=== PATIENT | female | born 1975 | race Asian ===

== ENCOUNTER 2017-01-01 20:29 | Emergency (ER) | payer BC ==
[2017-01-01] MEDS ORDERED: NORMAL SALINE 1,000 ML IV ONE (21:00)
[2017-01-01] MEDS ORDERED: KETOROLAC TROMETHAMINE 30 MG/ML VIAL IV ONE (21:00)
--- NOTE | 2017-01-01 21:01 | ERNOTE ---
<Amber Schilling - Last Filed: 01/01/17 22:08> Abdominal HPI - Narrative Date of Service: 01/01/17 - General Chief Complaint: Abdominal Pain Time Seen by Provider: 01/01/17 20:52 Source: patient Exam Limitations: no limitations - Immun/Allergies/Home Medications Immunizatons: IMMUNIZATION HX Immunizations Up to Date Yes History of Influenza Vaccine Yes Hx Pneumococcal Vaccination Yes Allergies/Adverse Reactions: Allergies latex Allergy (Mild, Verified 02/07/17 14:00) Other numbness/tingling Home Medications: HOME MEDICATIONS Ibuprofen [Motrin] 800 mg PO Q8H PRN #30 tablet 02/08/17 [Last Taken Unknown] - History of Present Illness Narrative: Pt. comes in with c/o RUQ and RLQ abd pain for a day pt. states that she developed the pain this afternoon and states that it started in her lower abdomen and has moved to her R side and to BUQ. Pt. states that she develops nausea when the pain is very bad but not when the pain is only moderate. Pt. denies any vomiting, diarrhea or constipation. Pt. states that her LBM was this morning and it was nor mal for her. Pt. states that she is on her menses righ now on day four and has severe cramping from this due to uterine fibroids and was told by Dr Bai that she most likely needs a hysterectomy but has not discussed when this should occur yet. Pt. denies saturating any more pads than 1 every three to four hours. Review of Systems - Review of Systems Constitutional: Present: no symptoms reported. Absent: recent illness, fever, chills, weakness, fatigue, malaise EYE: Present: no symptoms reported ENT: Present: no symptoms reported Respiratory: Present: no symptoms reported. Absent: shortness of breath, cough , wheezing Cardiology: Present: no symptoms reported. Absent: chest pain, palpitations, edema Gastrointestinal/Abdominal: Present: nausea - occasionally, abdominal pain. Absent: vomiting, diarrhea Genitourinary: Present: no symptoms reported Musculoskeletal: Present: no symptoms reported. Absent: back pain, joint pain Skin: Present: no symptoms reported. Absent: rash, change in color Neurological: Present: no symptoms reported. Absent: headache, dizziness/light- headedness, numbness, tingling All Other Systems: All systems neg except as marked - Patient's Past Medical History Patient History - Medical: Anemia Patient History - Cardiac/Respiratory: No pertinent hx Patient History - Cancer: No Hx of Cancer Patient History - Surgical Procedures: No surgical history Patient History - Other: None LMP (Calendar): 12/30/16 - Social History Living Situations: spouse Psych History: No pertinent hx Smoking Status: Never smoker Have you smoked in the past 12 months: No Do you dip or chew tobacco: No Patient requests Smoking Cessation Consult: No Initiate information on Smoking Cessation: No Drug Use: none - Immunizations Immunizations Up to Date: Yes Hx Pneumococcal Vaccination: Yes History of Influenza Vaccine: Yes Physical Exam - Physical Exam General Appearance: Present: wd/wn, alert, no apparent distress Eye Exam: Normal inspection: bilateral, PERRL: bilateral, EOMI: bilateral Ears, Nose, Throat: Present: normal ENT inspection, normal pharynx Neck: Present: normal inspection, nontender. Absent: lymphadenopathy (R), lymphadenopathy (L) Respiratory: Present: no respiratory distress, normal breath sounds, no accessory muscle use, chest nontender, lungs clear Cardiovascular/Chest: Present: regular rate, rhythm, no murmur, normal peripheral pulses Gastrointestinal/Abdominal: Present: normal bowel sounds, soft, no organomegaly , tenderness - RLQ RUQ, distended, guarding. Absent: rebound, McBurney sign, Obturator sign, Cantor sign, Psoas sign Back Exam: Present: normal inspection, normal range of motion, no CVA tenderness , no vertebral tenderness Extremity Exam: Present: normal inspection, non-tender, normal range of motion, no edema Neurological Exam: Present: alert, oriented, normal mood/affect, no motor/ sensory deficits Skin Exam: Present: normal color, warm/dry ED Progress - Vital Signs Patient's Vital Signs:: I have reviewed the patient's vital signs. Vital Signs: Vital Signs 01/01/17 20:29 Temperature 37.1 C Pulse Rate 91 Respiratory 18 Rate Blood Pressure 124/49 O2 Sat by Pulse 99 Oximetry - Progress/Reassessment Chief Complaint: Abdominal Pain Progress:: Unchanged - Transfer of Care Physician Sign Out: Amber Schilling Receiving Physician: Ashish Cerrato Pending Results: Labs, Physician/consult arrival, X-ray results Expected Disposition: Admit Departure - Departure Clinical Impression: Abdominal pain Qualifiers: Abdominal location: right lower quadrant Qualified Code(s): R10.31 - Right lower quadrant pain Anemia Qualifiers: Anemia type: iron deficiency Iron deficiency anemia type: chronic blood loss Qualified Code(s): D50.0 - Iron deficiency anemia secondary to blood loss ( chronic) Uterine fibroid Qualifiers: Uterine leiomyoma location: unspecified location Qualified Code(s): D25.9 - Leiomyoma of uterus, unspecified Disposition: Home self-care Condition: Fair Instructions: Uterine Fibroids, [id number] Print Language: Mozambican Additional Instructions: Call your physician in the morning. Referrals: Lyndsey Bai MD [Staff Physician] - <Ashish Cerrato - Last Filed: 03/15/17 05:56> Abdominal HPI - Immun/Allergies/Home Medications Immunizatons: IMMUNIZATION HX Immunizations Up to Date Yes History of Influenza Vaccine Yes Hx Pneumococcal Vaccination Yes - History of Present Illness Timing: constant Quality: severe Modifying Factors - (Improves): Present: other - nothing Modifying Factors - (Worsens): Present: other - nothing ED Progress - Results and Orders Patient's Lab Results:: I have reviewed the patient's lab results. - Vital Signs Patient's Vital Signs:: I have reviewed the patient's vital signs. Vital Signs: Vital Signs 01/01/17 01/01/17 01/01/17 20:29 21:18 23:21 Temperature 37.1 C Pulse Rate 91 88 90 Respiratory 18 16 Rate Blood Pressure 124/49 105/63 O2 Sat by Pulse 99 99 Oximetry - CT/Ultrasound CT/Ultrasound Narrative: US demonstarte a 1.7 x 0.9 x 1.5 cm hypoechoic lesion within the right ovary. 2.1 x 2.3 x.1.8 cm solid lesion with Doppler Flow within the right ovary. Doppler flow is seen within both ovaries. - Progress/Reassessment Progress:: Improved Progress Note-Subjective: 01/02/17 00:40 The pain is minimal at this time. Given potassium Chloride 40 meq po. 03/14/17 18:46
[2017-01-01 21:15] LABS: Hematocrit 28.4 % (37.0-47.0); Hemoglobin 8.3 gm/dL (12.5-16.0); Mean Cell Volume 71.9 fl (78-100); Mean Corpuscular Hgb Conc 29.2 g/dl (32-36); Mean Platelet Volume 9.2 fl (6.0-9.5); Neutrophil # 11.7 K/mm3 (1.3-6.0); Neutrophil % 89.7 % (42-75.0); Platelet Count 293 K/mm3 (150-450); Red Blood Count 3.95 M/mm3 (4.2-5.4); Red Cell Distribution Width 14.8 % (11.5-14.0)
[2017-01-01 21:36] LABS: Albumin * 3.4 gm/dl (3.4-5.0); Anion Gap 14.5 mmol/L (6.8-13.8); Bilirubin, Total 0.6 mg/dL (0.0-1.1); Ca. Corrected For Albumin 8.3 mg/dL (8.4-10.2); Calcium * 8.1 mg/dL (7.9-10.9); Carbon Dioxide 24.7 mmol/L (24-32.6); Potassium 3.2 mmol/L (3.4-4.6); Total Protein 7.2 gm/dL (6.2-8.2)
[2017-01-01] MEDS ORDERED: KETOROLAC TROMETHAMINE 30 MG/ML VIAL ONE (21:40)
[2017-01-01 22:00] LABS: Urine Bilirubin Negative (NEGATIVE); Urine Blood 250 /ul (NEGATIVE); Urine Ketone 15 mg/dL (NEGATIVE); Urine Nitrite Negative (NEGATIVE); Urine Protein 15 mg/dL (NEGATIVE); Urine Urobilinogen 4 EU/dl (NORMAL)
[2017-01-01 22:11] LABS: Urine Appearance Clear; Urine Bacteria 1+; Urine Color Yellow; Urine Mucus Moderate - 2+; Urine RBC 25-50 /hpf (0-5); Urine WBC None Seen /hpf (0-5)
[2017-01-01 22:19] LABS: Hemoglobin A1C 5.6 % (4.00-6.0)
[2017-01-02] MEDS ORDERED: HYDROcodone/ACETAMINOPHEN 1 EACH TABLET PO ONE (00:41)
[2017-01-02] MEDS ORDERED: POTASSIUM CHLORIDE 20 MEQ TABLET.SA PO ONE (00:44)
[2017-01-02] MEDS ORDERED: HYDROcodone/ACETAMINOPHEN 1 EACH TABLET ONE (00:58)
[2017-01-02] MEDS ORDERED: POTASSIUM CHLORIDE 20 MEQ TABLET.SA ONE (00:59)
[2017-01-02 04:04] VITALS: BP 112/52
== END 2017-01-02 00:50 | disposition home or self-care (01) ==
LOC: ER 20:29
DX: D25.9 Leiomyoma of uterus, unspecified (principal); D50.0 Iron deficiency anemia secondary to blood loss (chronic); R10.31 Right lower quadrant pain

== ENCOUNTER 2017-02-07 06:44 | Inpatient (IN) | payer BC ==
[~2017-02-07 06:44] MED LIST: ceFAZolin SODIUM 2 GM in DEXTROSE 5 % IN WATER 50 ML IV PRN
--- OUTSIDE RECORDS SUMMARY | 2017-02-07 06:47 | XMS REPORT | Continuity of Care Document ---
:1975 Author Organization [facility] ([facility]) Address [address] [place] [address] Phone [phone] Care Team Providers Name Role Phone Provider, No-Primary Care Primary Care Provider Unavailable Source Comments This disclosure is being made pursuant to the Care Everywhere program, applicable federal and state laws, and may not contain all informaitonavailable regarding this patient.[facility] ([facility]) Active Allergies and Adverse Reactions No Known Allergies Current Medications Prescription Sig. Disp. Refills Start Date End Date Status multivitamin with Take 1 tablet by Active minerals tablet mouth daily. Active Problems Not on file Most Recent Encounters Date Type Specialty Providers Description 01/28/2017 Office Visit Ophthalmology - Chief Comp: Patient Specialty Reported Reason For Visit 01/28/2017 Office Visit Ophthalmology - Stanley Becerra, Dx: Corneal disorder Specialty MD due to contact lens, bilateral (Primary Dx) Social History Tobacco Use Types Packs/Day Years Used Date Never Smoker Smokeless Tobacco: Never Used Plan of Care Date Type Specialty Providers Description 04/01/2017 Appointment Ophthalmology - Stanley Becerra MD Chief Comp: Patient Specialty [address] [place] [address] Visit [phone] (Fax) Health Maintenance Due Date Last Done Comments Hepatitis B Vaccine (1 of 3 - Primary Series) 1975 Tdap Vaccine 1985 Lipid Disorder Screening 1992 MMR Vaccine 1992 Td Vaccine 1992 Cervical Cancer Screening 2004 Mammogram 2014 Influenza Vaccine: Seasonal (Season Ended) 2017 Results from Last 3 Months CORNEAL TOPOGRAPHY (01/28/2017 12:27 PM) Narrative Corneal topography/tomography ordered to determine impact of corneal contour and optical denisity on vision/symptoms and chief complaint. See note for clinical correlation. Image quality adequate. [place]: both eyes with unreliable Ks and diffuse severe disruption of mires Impression: severe irregular astigmatism both eyes see note
[2017-02-07 07:21] LABS: Hematocrit 39.6 % (37.0-47.0); Hemoglobin 12.7 gm/dL (12.5-16.0); Mean Cell Volume 81.1 fl (78-100); Mean Corpuscular Hgb Conc 32.1 g/dl (32-36); Mean Platelet Volume 9.2 fl (6.0-9.5); Neutrophil # 2.7 K/mm3 (1.3-6.0); Neutrophil % 58.5 % (42-75.0); Platelet Count 270 K/mm3 (150-450); Red Blood Count 4.88 M/mm3 (4.2-5.4); Red Cell Distribution Width 21.1 % (11.5-14.0); White Blood Count 4.7 K/mm3 (4.0-10.5)
[2017-02-07] MEDS ORDERED: RINGERS SOLUTION,LACTATED 1,000 ML IV ONE ×3 (07:25→12:10)
[2017-02-07 07:47] LABS: Albumin * 3.9 gm/dl (3.4-5.0); Anion Gap 11.5 mmol/L (6.8-13.8); BUN/Creatinine Ratio 12.7 (9.0-21.6); Bilirubin, Total 0.4 mg/dL (0.0-1.1); Ca. Corrected For Albumin 8.3 mg/dL (8.4-10.2); Calcium * 8.5 mg/dL (7.9-10.9); Carbon Dioxide 29.2 mmol/L (24-32.6); Potassium 3.7 mmol/L (3.4-4.6); Total Protein 7.8 gm/dL (6.2-8.2)
--- OUTSIDE RECORDS SUMMARY | 2017-02-07 10:15 | XMS REPORT | Continuity of Care Document ---
:1975 Author Organization [facility] ([facility]) Address [address] [place] [address] Phone [phone] Care Team Providers Name Role Phone Provider, No-Primary Care Primary Care Provider Unavailable Source Comments This disclosure is being made pursuant to the Care Everywhere program, applicable federal and state laws, and may not contain all informaitonavailable regarding this patient.[facility] ([facility]) Active Allergies and Adverse Reactions No Known [...] Specialty [address] [place] [address] Visit [phone] (Fax) Health Maintenance Due Date Last Done [...] note for clinical correlation. Image quality adequate. [place]: both eyes with unreliable Ks and diffuse severe disruption of mires Impression: severe irregular astigmatism both eyes see note
[2017-02-07] MEDS ORDERED: RINGERS SOLUTION,LACTATED 1,000 ML IV PRN (12:52)
[2017-02-07] MEDS ORDERED: HYDROcodone/ACETAMINOPHEN 1 EACH TABLET PO PRN (12:54)
[2017-02-07] MEDS ORDERED: HYDROmorphone HCL 1 MG/ML DISP.SYRIN IV PRN (12:56)
--- NOTE | 2017-02-07 12:59 | OR ---
Operative Report - Dictated Report Narrative: Op report pending.
[2017-02-07] MEDS: RINGERS SOLUTION,LACTATED 1,000 ML IV PRN (13:40)
[2017-02-07] MEDS: IBUPROFEN 800 MG TABLET PO PRN (16:45)
[2017-02-07] MEDS ORDERED: ACETAMINOPHEN 325 MG TABLET PO PRN (17:56)
[2017-02-07] MEDS: KETOROLAC TROMETHAMINE 15 MG/ML VIAL IV PRN (19:14)
[2017-02-08] MEDS: IBUPROFEN 800 MG TABLET PO PRN (01:03)
[2017-02-08] MEDS: RINGERS SOLUTION,LACTATED 1,000 ML IV PRN (01:07)
[2017-02-08] MEDS: KETOROLAC TROMETHAMINE 15 MG/ML VIAL IV PRN (03:29)
[2017-02-08 05:54] LABS: Hematocrit 29.3 % (37.0-47.0); Hemoglobin 9.5 gm/dL (12.5-16.0); Mean Cell Volume 80.1 fl (78-100); Mean Corpuscular Hgb Conc 32.4 g/dl (32-36); Mean Platelet Volume 9.5 fl (6.0-9.5); Platelet Count 258 K/mm3 (150-450); Red Blood Count 3.66 M/mm3 (4.2-5.4); White Blood Count 12.8 K/mm3 (4.0-10.5)
[2017-02-08 06:08] LABS: Anion Gap 11.2 mmol/L (6.8-13.8); BUN/Creatinine Ratio 14.5 (9.0-21.6); Calcium * 8.2 mg/dL (7.9-10.9); Carbon Dioxide 26.4 mmol/L (24-32.6); Estimated Creat Clear 104.5; Potassium 3.6 mmol/L (3.4-4.6)
[2017-02-08 06:11] LABS: Total Cells Counted 100
[2017-02-08 06:35] LABS: Lymphocyte 6 % (20-51); Monocyte 3 % (0-9); Neutrophil 91 % (42-75); Neutrophil # 11.6 K/mm3 (1.3-6.0)
[2017-02-08 06:36] LABS: Platelet Estimate Normal (NORMAL); RBC Morphology Normal (NORMAL)
[2017-02-08] MEDS: HYDROcodone/ACETAMINOPHEN 1 EACH TABLET PO PRN ×2 (08:29→13:15)
[2017-02-08] MEDS ORDERED: PHENOL 180 SPRAY BTL MM PRN (09:04)
[2017-02-08] MEDS ORDERED: ACETAMINOPHEN WITH CODEINE 1 EACH TABLET PO PRN (09:05)
--- NOTE | 2017-02-08 09:20 | PN ---
Subjective - Date and Time Seen Date: 02/08/17 Subjective Narrative: Post op date 1, s/p attempted TLH, converted to JOANNE with BS, right ovarian cystectomy. doing well. pain is suboptimally controlled with ibuprofen/toradol. declined narcotic pain medications. rates pain at 7/10 when getting in or out of bed, otherwise pain is mild. ambulated a few times in the hallway. voided with good amount of urine. tolerated regular diet. also complains of sore throat, likely due to intubation from anesthesia. Objective - Vitals Vitals: Last Vital Signs Temp 36.9 C 02/08/17 06:26 Pulse 82 02/08/17 06:26 Resp 16 02/08/17 06:26 BP 121/72 02/08/17 06:26 Pulse Ox 98 02/08/17 06:26 - Abnormal Lab Findings Abnormal Lab Findings: Abnormal Lab Results 02/08/17 02/08/17 Range/Units 05:41 05:41 WBC 12.8 H D (4.0-10.5) K/mm3 RBC 3.66 L (4.2-5.4) M/mm3 Hgb 9.5 L (12.5-16.0) gm/dL Hct 29.3 L (37.0-47.0) % MCH 26.0 L (27-31) pg Neutrophils % (Manual) 91 H (42-75) % Lymphocytes % (Manual) 6 L (20-51) % Neutrophils # (Manual) 11.6 H (1.3-6.0) K/mm3 Lymphocytes # (Manual) 0.8 L (1.5-3.5) k/mm3 Chloride 108 H (97-106) mmol/L Random Glucose 123 H (70-110) mg/dL - Exam Constitutional: Present: Alert, Oriented x3, Cooperative Respiratory: Present: no respiratory distress Cardiovascular/Chest: Present: normal peripheral pulses Abdomen: Present: Normal bowel sounds, soft, nondistended, other - incisions: dressing removed, dry and clean, steri strip intact Extremity: Present: normal range of motion, no pedal edema, no calf tenderness Assessment/Plan Plan Narrative: A: POD#1, s/p attempted TLH, converted to JOANNE, BS and right ovarian cystectomy. Stable with suboptimal pain control due to not desiring narcotic pain medication. Plan: routine post op care. will d/c IV fluid. regular diet as tolerated. pain meds to try norco or tylenol #3. chloraceptic for sore throat. possible d/c home today if desired. Lyndsey Bai MD
[2017-02-08 10:00] VITALS: BP 118/39
--- NOTE | 2017-02-08 13:02 | DS ---
(1) S/P JOANNE (total abdominal hysterectomy) Problem: Acute (2) Status post bilateral salpingectomy Problem: Acute (3) Status post ovarian cystectomy Problem: Acute (4) Menorrhagia Problem: Acute (5) Dysmenorrhea Problem: Acute (6) Enlarged uterus Problem: Acute (7) Anemia Problem: Acute Qualifiers: Anemia type: iron deficiency Iron deficiency anemia type: chronic blood loss Qualified Code(s): D50.0 - Iron deficiency anemia secondary to blood loss (chronic) (8) Uterine fibroid Problem: Acute Qualifiers: Uterine leiomyoma location: unspecified location Qualified Code(s): D25.9 - Leiomyoma of uterus, unspecified Description of Stay: Post op date 1, s/p JOANNE, BS and right ovarian cystectomy. doing well. pain controlled with norco. ambulating well. tolerating diet. passed flatus. Exam: unremarkable. Procedures Performed: see notes below - JOANNE, bilateral salpingectomy, right ovarian cystectomy Discharge Disposition: Home self care Disposition: Home self-care Condition: Good Discharge Activity: Activity as tolerated - no lifting until further notified. Discharge Diet: General/regular food Complete Home Medications List: Complete Home Medication List: Ibuprofen [Motrin] 800 mg PO Q8H PRN #30 tablet 02/08/17
== END 2017-02-08 14:33 | disposition home or self-care (01) | DRG 743 ==
LOC: AMB 06:44 → MS 10:11 → INTOOBSV 10:11 → OBSVTOIN 13:45 → MS 13:45
PROVIDERS: ADMIT Obstetrics & Gynecology; ATTEND Obstetrics & Gynecology
PROC: 0UTC0ZZ Resection of Cervix, Open Approach (ICD-10-PCS; 2017-02-07)
PROC: 0UT70ZZ Resection of Bilateral Fallopian Tubes, Open Approach (ICD-10-PCS; 2017-02-07)
PROC: 0UB00ZZ Excision of Right Ovary, Open Approach (ICD-10-PCS; 2017-02-07)
PROC: 0UN00ZZ Release Right Ovary, Open Approach (ICD-10-PCS; 2017-02-07)
PROC: 0UN90ZZ Release Uterus, Open Approach (ICD-10-PCS; 2017-02-07)
PROC: 0UN50ZZ Release Right Fallopian Tube, Open Approach (ICD-10-PCS; 2017-02-07)
PROC: 0TJB8ZZ Inspection of Bladder, Via Natural or Artificial Opening Endoscopic (ICD-10-PCS; 2017-02-07)
PROC: 0UT90ZZ Resection of Uterus, Open Approach (ICD-10-PCS; principal; 2017-02-07 07:50)
PROC: 0UJD4ZZ Inspection of Uterus and Cervix, Percutaneous Endoscopic Approach (ICD-10-PCS; 2017-02-07 07:50)
DX: D25.9 Leiomyoma of uterus, unspecified (principal); N80.1 Endometriosis of ovary; N73.6 Female pelvic peritoneal adhesions (postinfective); N94.6 Dysmenorrhea, unspecified; N85.2 Hypertrophy of uterus; D50.0 Iron deficiency anemia secondary to blood loss (chronic)